=== PATIENT | male | born 1980 | race Caucasian/White ===

== ENCOUNTER 2020-10-10 14:09 | Emergency (ER) | payer OTHER ==
[~2020-10-10] VITALS: Ht 190.5 cm; Wt 172.4 kg
== END 2020-10-10 19:30 | disposition home or self-care (01) ==
LOC: ED 14:09
DX: M25.532 Pain in left wrist (principal); Z87.891 Personal history of nicotine dependence
CPT/HCPCS: 73110; 99283-25